=== PATIENT | female | born 1960 | race American Indian/Alaskan Native ===

== ENCOUNTER 2021-06-04 12:35 | Emergency (ER) | payer SELFPAY ==
[2021-06-04 12:44] VITALS: BP 193/111
--- NOTE | 2021-06-04 12:55 | Emergency Department Report ---
ED Extremity Problem HPI - General Chief complaint: Extremity Problem,Nontraumatic Stated complaint: BOTH KNEES SWOLLEN Source: patient Mode of arrival: Ambulatory Limitations: No Limitations - History of Present Illness Initial comments: Patient is a 61-year-old -[place] female with with a history of chronic osteoarthritis of the bilateral knees and hypertension and not on medications who presents to the ED with complaint of acute exacerbation of her chronic left knee pain for the last 2 months. Patient states that she has been taking [id number] medications for pain with no relief. Patient also states that she used to take blood pressure medications many years ago but stopped taking them when she ran out. Patient denies fall, dizziness, syncope, chest pain, shortness of breath, nausea and vomiting, numbness and tingling or weakness of lower extremities bilaterally, low back pain, abdominal pain, heavy lifting or traumatic injury. MD Complaint: extremity pain (Left knee pain and swelling), extremity swelling (Left knee pain and swelling), joint swelling (Left knee pain and swelling), joint paint (Left knee pain and swelling) -: Gradual, year(s) (chronic pain) Location: lower extremity (left knee pain) History of Same: No -: Yes arthralgia (left knee pain), No fever, No associated dyspnea, No associated chest pain Severity scale (0 -10): 8 Quality: aching, sharp Consistency: constant Improves with: nothing Worsens with: weight bearing, walking, palpation Associated Symptoms: denies other symptoms, arthralgias. denies: chest pain, shortness of breath, fever, myalgias - Related Data Previous Rx's Medication Instructions Recorded Last Taken Type Lisinopril/Hydrochlorothiazide 1 tab PO QDAY #30 tab 06/04/21 Unknown Rx [Zestoretic 20-12.5 mg] Naproxen Sodium [Naproxen Sodium 550 mg PO Q12H PRN #30 tab 06/04/21 Unknown Rx 550mg] predniSONE [Deltasone] 60 mg PO QDAY #15 tab 06/04/21 Unknown Rx traMADoL [Ultram] 50 mg PO Q6HR PRN #12 tablet 06/04/21 Unknown Rx Allergies Allergy/AdvReac Type Severity Reaction Status Date / Time No Known Allergies Allergy Verified 06/04/21 12:42 ED Review of Systems ROS: Stated complaint: BOTH KNEES SWOLLEN Other details as noted in HPI Constitutional: denies: chills, fever Eyes: denies: eye pain, eye discharge, vision change ENT: denies: ear pain, throat pain Respiratory: denies: cough, shortness of breath, wheezing Cardiovascular: denies: chest pain, palpitations Endocrine: no symptoms reported Gastrointestinal: denies: abdominal pain, nausea, diarrhea Genitourinary: denies: urgency, dysuria, discharge Musculoskeletal: joint swelling (Left knee pain and swelling), arthralgia (Left left knee pain). denies: back pain Skin: denies: rash, lesions Neurological: denies: headache, weakness, paresthesias Psychiatric: denies: anxiety, depression Hematological/Lymphatic: denies: easy bleeding, easy bruising ED Past Medical Hx - Past Medical History Previous Medical History?: Yes Hx Hypertension: Yes Hx Arthritis: Yes - Medications Home Medications: Home Medications Medication Instructions Recorded Confirmed Last Taken Type Lisinopril/Hydrochlorothiazide 1 tab PO QDAY #30 tab 06/04/21 Unknown Rx [Zestoretic 20-12.5 mg] Naproxen Sodium [Naproxen Sodium 550 mg PO Q12H PRN #30 tab 06/04/21 Unknown Rx 550mg] predniSONE [Deltasone] 60 mg PO QDAY #15 tab 06/04/21 Unknown Rx traMADoL [Ultram] 50 mg PO Q6HR PRN #12 tablet 06/04/21 Unknown Rx ED Physical Exam - General Limitations: No Limitations General appearance: alert, in no apparent distress - Head Head exam: Present: atraumatic, normocephalic, normal inspection - Eye Eye exam: Present: normal appearance, PERRL, EOMI Pupils: Present: normal accommodation - ENT ENT exam: Present: normal exam, normal orophraynx, mucous membranes moist, TM's normal bilaterally, normal external ear exam - Neck Neck exam: Present: normal inspection, full ROM. Absent: tenderness - Respiratory Respiratory exam: Present: normal lung sounds bilaterally. Absent: respiratory distress, wheezes, rales, chest wall tenderness, decreased breath sounds, prolonged expiratory - Cardiovascular Cardiovascular Exam: Present: regular rate, normal rhythm, normal heart sounds. Absent: systolic murmur, diastolic murmur, rubs, gallop - GI/Abdominal GI/Abdominal exam: Present: soft, normal bowel sounds. Absent: tenderness, guarding, rebound, hyperactive bowel sounds, hypoactive bowel sounds, organomegaly, bruit - Extremities Exam Extremities exam: Present: normal inspection, full ROM, tenderness (Palpable left knee tenderness with mild swelling), normal capillary refill, joint swelling (Mild left knee swelling) - Back Exam Back exam: Present: normal inspection, full ROM. Absent: tenderness, CVA tenderness (L), muscle spasm, paraspinal tenderness, vertebral tenderness - Neurological Exam Neurological exam: Present: alert, oriented X3, CN II-XII intact, normal gait, reflexes normal - Psychiatric Psychiatric exam: Present: normal affect, normal mood - Skin Skin exam: Present: warm, dry, intact, normal color. Absent: rash ED Course Vital Signs 06/04/21 12:42 Temperature 97.6 F Pulse Rate 79 Respiratory 16 Rate Blood Pressure 193/111 [Left] O2 Sat by Pulse 97 Oximetry ED Medical Decision Making - Medical Decision Making This is a 61-year-old -[place] female with with a history of chronic osteoarthritis of the bilateral knees and hypertension and not on medications who presents to the ED with complaint of acute exacerbation of her chronic left knee pain for the last 2 months. Patient states that she has been taking [id number] medications for pain with no relief. Patient also states that she used to take blood pressure medications many years ago but stopped taking them when she ran out. In the ED, patient is alert and oriented x3 and is not in any distress. Patient however is hypertensive but denies any chest pain or shortness of breath or dizziness or lightheadedness. Patient is currently not taking any medication for blood pressure although she used to take medications. Patient was discharged home on pain medications and also given blood pressure medication prescription to take at home and was given referral to her primary care physician in the local area since [place]. Patient was advised to follow-up with the primary care physician in 7 to 10 days for reevaluation or return to the ED immediately if symptoms get worse. - Differential Diagnosis Chronic pain syndrome; chronic osteoarthritis; uncontrolled hypertension Critical care attestation.: If time is entered above; I have spent that time in minutes in the direct care of this critically ill patient, excluding procedure time. ED Disposition Clinical Impression: Chronic osteoarthritis, Chronic pain of left knee, Uncontrolled stage 2 hypertension Disposition: HOME / SELF CARE / HOMELESS Is pt being admited?: No Does the pt Need Aspirin: No Condition: Stable Instructions: Chronic Knee Pain, Adult, [id number], Arthritis, [id number], Hypertension, Adult, [id number], Joint Pain, [id number], Hypertension (ED) Additional Instructions: Take medication with food, drink plenty of fluids and follow-up with the primary care physician in 7 to 10 days for reevaluation. Return to the ED immediately if symptoms get worse. Prescriptions: predniSONE [Deltasone] 60 mg PO QDAY #15 tab Naproxen Sodium [Naproxen Sodium 550mg] 550 mg PO Q12H PRN #30 tab PRN Reason: Pain , Severe (7-10) traMADoL [Ultram] 50 mg PO Q6HR PRN #12 tablet PRN Reason: Pain Lisinopril/Hydrochlorothiazide [Zestoretic 20-12.5 mg] 1 tab PO QDAY #30 tab Referrals: MADDISON ABREU MD [Staff Physician] - 7-10 days Time of Disposition: 12:58 Print Language: [place]
[2021-06-04] MEDS ORDERED: predniSONE 20 MG TAB PO ONE (13:01)
[2021-06-04] MEDS ORDERED: IBUPROFEN 600 MG TAB PO ONE (13:01)
== END 2021-06-04 13:00 | disposition home or self-care (01) ==
LOC: ED 12:35
DX: M19.90 Unspecified osteoarthritis, unspecified site (principal); M25.562 Pain in left knee; I10 Essential (primary) hypertension
CPT/HCPCS: 99282